=== PATIENT | female | born 1950 | race Caucasian/White ===

== ENCOUNTER 2018-01-15 06:45 | Inpatient (IN) | payer MEDICARE, BC ==
[2018-01-15] MEDS ORDERED: FENTANYL CITRATE INJ/PF 100 MCG/2 ML AMPUL IV ONE (07:49)
--- NOTE | 2018-01-15 07:50 | ER Document Report ---
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 This was an unwitnessed fall. Patient does not actively have a primary care provider. Not take any anticoagulants or blood thinners. Patient states when she was trying to sit down on the toilet, she started to become dizzy and fell forward. Patient is currently staying with her her son, she resides in [place]. Denies fevers, chills, chest pain, palpitations, shortness of breath, dyspnea, nausea, vomiting, diarrhea, abdominal pain, hematuria,blurred vision, double vision, loss of vision, speech changes, LH, headaches, wheezing, ST, URI, neck pain, weakness, bowel or bladder dysfunction, saddle anesthesia, numbness or tingling in bilateral upper or lower extremities equally, muscle paralysis, weakness in bilateral upper or lower extremities equally or rash. - Related Data Allergies/Adverse Reactions: metformin [From Glucophage] Allergy (Verified 01/15/18 07:12) morphine Allergy (Verified 01/15/18 07:12) Past Medical History - Social History Smoking Status: Current Every Day Smoker Chew tobacco use (# tins/day): No Frequency of alcohol use: None Drug Abuse: None Family History: Reviewed & Not Pertinent Patient has suicidal ideation: No Patient has homicidal ideation: No - Past Medical History Cardiac Medical History: Reports: Hx Hypercholesterolemia Pulmonary Medical History: Reports: Hx COPD Endocrine Medical History: Reports: Hx Diabetes Mellitus Type 2 Renal/ Medical History: Denies: Hx Peritoneal Dialysis Review of Systems - Review of Systems Constitutional: See HPI EENT: No symptoms reported Cardiovascular: No symptoms reported Respiratory: No symptoms reported Gastrointestinal: No symptoms reported Genitourinary: No symptoms reported Female Genitourinary: No symptoms reported Musculoskeletal: See HPI Skin: No symptoms reported Hematologic/Lymphatic: No symptoms reported Neurological/Psychological: No symptoms reported Physical Exam - Vital signs Vitals: Pulse Ox 95 01/15/18 06:52 - Notes Notes: PHYSICAL EXAMINATION: GENERAL: Well-appearing, well-nourished and in no acute distress. HEAD: Atraumatic, normocephalic. EYES: Pupils equal round and reactive to light, extraocular movements intact, conjunctiva are normal. ENT: Nares patent, oropharynx clear without exudates. Moist mucous membranes. NECK: Normal range of motion, supple without lymphadenopathy. full APROM of cervical spine, noted cervical spinal tenderness on palpation from C4-C5. negative spurlings test. Vp [employer] + 2 bilaterally and equally. Dtr +2 bilaterally and equally in BUE. Perrla, full eomi. Face symmetrical. No rashes observed. Point tenderness to right paraspinal muscles near C6. No lymphadenopathy. Full APROM with shoulders. TM intact bilaterally. No meningismus. No noted lymphadenopathy. LUNGS: Breath sounds clear to auscultation bilaterally and equal. No wheezes rales or rhonchi. HEART: Regular rate and rhythm without murmurs ABDOMEN: Soft, nontender, nondistended abdomen. No guarding, no rebound. No masses appreciated. Female : deferred Musculoskeletal: Normal range of motion, no pitting or edema. No cyanosis. left shoulder pain with abduction and flexion. no pain with supination, pronation, extension. negative , [employer] + 2 BUE equally. APROM in shoulder. DTR + 2 in BUE equally. Noted crepitus with APROM in elbow. positive drop arm, neer sign, marquez test bilaterally. No vascular compromise. Neck with full APROM, no cervical spinal tenderness. No tenderness over clavicles or step off noted bilaterally. Strength 5 out of 5 in bilateral upper extremities equally. NEUROLOGICAL: Cranial nerves grossly intact. Normal speech, normal gait. Normal sensory, motor exams. PERRLA, EOMI. Full motor and sensory function throughout. Vp [employer] + 2 equal bilaterally in BUE. Tongue midline. No pronator drift. No ataxia. Neck with APROM. Raises eyebrows. Strength is 5 out of 5 in bilateral upper and lower extremities equally.Speaks in full sentences. No weakness on one side. Romberg gait steady able to walk straight line. Able to recall 5 objects. PSYCH: Normal mood, normal affect. SKIN: Warm, Dry, normal turgor, no rashes or lesions noted. Course - Re-evaluation Re-evalutation: 01/15/18 08:58 67-year-old female who is afebrile, vitals stable and in mild distress due to pain presents for evaluation for dizziness pain to her right shoulder. Her son requested to have femur x-ray on her left hip because she had a brittani placement taken out approximately a year ago from a previous injury, he was concerned about the ride for the patient is not having any pain in this area. CBC negative for leukocytosis or anemia. CMP does show potassium of 2.7 which will replace with K riders, BNP 1130 which is new onset CHF for this patient. First set of troponin is negative, EKG negative for STEM. Hr 75. First set of cardiac enzymes negative. CT head, cxr, and cervical spine did not show any acute findings per radiology. xray shoulder showed an acute displaced fracture of the left humeral head of the surgical neck with suggestion of combination into the humeral head. Contacted Dr. Cristofer Jane, family centered specialist on-call for the ED at home, stated he would like her placed in a sling and will see her in the office on Tuesday. Consulted with Dr.Avijeet Ellsworth, hospitalist,at 0945, for new onset CHF , hypokalemia 2.7, left surgical head displaced fracture which is also comminuted will admit to telemetry for further management of care and medical service. - Vital Signs Vital signs: Temp Pulse Resp BP Pulse Ox 98.3 F 75 16 171/92 H 88 L 01/15/18 06:54 01/15/18 10:53 01/15/18 06:54 01/15/18 11:01 01/15/18 11:01 - Laboratory Result Diagrams: 01/15/18 08:21 01/15/18 08:21 Laboratory results interpreted by me: 01/15/18 01/15/18 01/15/18 08:21 08:21 08:21 RDW 17.1 H Seg Neutrophils % 81.8 H Lymphocytes % 9.6 L Potassium 2.7 L* Carbon Dioxide 35 H Glucose 330 H AST 40 H NT-Pro-B Natriuret Pep 1160 H Albumin 3.1 L Urine Protein Urine Glucose (UA) Urine Ketones Urine Blood Urine Urobilinogen 01/15/18 10:45 RDW Seg Neutrophils % Lymphocytes % Potassium Carbon Dioxide Glucose AST NT-Pro-B Natriuret Pep Albumin Urine Protein >=500 H Urine Glucose (UA) >=500 H Urine Ketones 20 H Urine Blood SMALL H Urine Urobilinogen 4.0 H Discharge - Discharge Clinical Impression: New onset of congestive heart failure, Hypokalemia Fracture of humeral head, left, closed Qualifiers: Encounter type: initial encounter Qualified Code(s): S42.292A - Other displaced fracture of upper end of left humerus, initial encounter for closed fracture Condition: Stable Disposition: ADMITTED INPATIENT Admitting Provider: Hospitalist - Dr. Bhat Dut Unit Admitted: Telemetry
[2018-01-15 08:38] LABS: ABSOLUTE BASOPHILS # (AUTO) 0.1 10^3/uL (0.0-0.2); ABSOLUTE EOSINOPHILS # (AUTO) 0.1 10^3/uL (0.0-0.6); ABSOLUTE LYMPHOCYTES (AUTO) 0.7 10^3/uL (0.5-4.7); ABSOLUTE MONOCYTES (AUTO) 0.4 10^3/uL (0.1-1.4); BASOPHILS % (AUTO) 0.8 % (0-2); EOSINOPHILS % (AUTO) 1.9 % (0-6); HEMATOCRIT 42.5 % (36.0-47.0); HEMOGLOBIN 14.6 g/dL (12.0-15.5); LYMPHOCYTES % (AUTO) 9.6 % (13-45); MEAN CORPUSCULAR HEMOGLOBIN 28.6 pg (27.0-33.4); MEAN CORPUSCULAR HGB CONC 34.4 g/dL (32.0-36.0); MEAN CORPUSCULAR VOLUME 83 fl (80-97); MONOCYTES % (AUTO) 5.9 % (3-13); PLATELET COUNT 193 10^3/uL (150-450); RED BLOOD COUNT 5.12 10^6/uL (3.72-5.28); RED CELL DISTRIBUTION WIDTH 17.1 % (11.5-14.0); SEGMENTED NEUTROPHILS % (AUTO) 81.8 % (42-78); TOTAL CELLS COUNTED % (AUTO) 100 %; WHITE BLOOD COUNT 7.3 10^3/uL (4.0-10.5)
[2018-01-15 08:50] LABS: INTERNATIONAL RATION (INR) 0.95; PARTIAL THROMBOPLASTIN TIME 28.5 SEC (23.5-35.8); PROTHROMBIN TIME 13.1 SEC (11.4-15.4)
[2018-01-15 09:02] LABS: ALANINE AMINOTRANSFERASE 26 U/L (9-52); ALBUMIN 3.1 g/dL (3.5-5.0); ALKALINE PHOSPHATASE 112 U/L (38-126); ANION GAP 5 (5-19); ASPARTATE AMINO TRANSFERASE 40 U/L (14-36); BILIRUBIN,DIRECT 0.4 mg/dL (0.0-0.4); BLOOD UREA NITROGEN 12 mg/dL (7-20); CALCIUM 8.5 mg/dL (8.4-10.2); CARBON DIOXIDE 35 mmol/L (22-30); CHLORIDE 101 mmol/L (98-107); CREATINE KINASE 32 U/L (30-135); GLUCOSE 330 mg/dL (75-110); SODIUM 140.7 mmol/L (137-145); TOTAL PROTEIN 6.4 g/dL (6.3-8.2)
[2018-01-15 09:08] LABS: CREATINE KINASE MB 0.48 ng/mL (<4.55)
--- NOTE | 2018-01-15 09:08 | RADIOLOGY REPORT (SQ) ---
EXAM DESCRIPTION: CT HEAD WITHOUT COMPLETED DATE/TIME: 01/15/2018 8:46 am REASON FOR STUDY: unwitnessed fall s/p dizziness into bathtub COMPARISON: None. TECHNIQUE: Axial images acquired through the brain without intravenous contrast. Images reviewed wi th bone, brain and subdural windows. Additional sagittal and coronal reconstructions were generated. Images stored on PACS. All CT scanners at this facility use dose modulation, iterative reconstruction, and/or weight based d osing when appropriate to reduce radiation dose to as low as reasonably achievable (ALARA). [facility]: Dose Right [facility]: CareDose [facility]: Dose Right [facility]: Teradose 4D [facility]: Smart Fio RADIATION DOSE: CT Rad equipment meets quality standard of care and radiation dose reduction techniq ues were employed. CTDIvol: 53.2 mGy. DLP: 937 mGy-cm. mGy. LIMITATIONS: None. FINDINGS: VENTRICLES: Prominent. CEREBRUM: No masses. No hemorrhage. No midline shift. Areas of low density in the white matter mos t likely due to chronic micro-vascular ischemic change. No evidence for acute infarction. CEREBELLUM: No masses. No hemorrhage. No alteration of density. No evidence for acute infarction. EXTRAAXIAL SPACES: Mild age-related involutional change. No fluid collections. No masses. ORBITS AND GLOBE: No intra- or extraconal masses. Normal contour of globe without masses. CALVARIUM: No fracture. PARANASAL SINUSES: No fluid or mucosal thickening. SOFT TISSUES: No mass or hematoma. OTHER: No other significant finding. IMPRESSION: MILD CHRONIC CHANGES OF ATROPHY AND MICROVASCULAR ISCHEMIA. NO ACUTE PROCESS. EVIDENCE OF ACUTE STROKE: NO. TECHNICAL DOCUMENTATION: JOB ID: [id number] Quality ID # [id number]: Final reports with documentation of one or more dose reduction techniques (e.g., Au tomated exposure control, adjustment of the mA and/or kV according to patient size, use of iterative reconstruction technique) 2010 [employer]- All Rights Reserved Reading location - IP/workstation name: [email or web address]
[2018-01-15 09:12] LABS: TROPONIN I 0.012 ng/mL
--- NOTE | 2018-01-15 09:12 | RADIOLOGY REPORT (SQ) ---
EXAM DESCRIPTION: CT CERVICAL SPINE WITHOUT COMPLETED DATE/TIME: 01/15/2018 8:46 am REASON FOR STUDY: unwitnessed fall s/p dizziness into bathtub COMPARISON: None. TECHNIQUE: Axial images acquired through the cervical spine without intravenous contrast. Images re viewed with lung, soft tissue and bone windows. Reconstructed coronal and sagittal MPR images review ed. Images stored on PACS. All CT scanners at this facility use dose modulation, iterative reconstruction, and/or weight based d osing when appropriate to reduce radiation dose to as low as reasonably achievable (ALARA). [facility]: Dose Right [facility]: CareDose [facility]: Dose Right [facility]: Teradose 4D [facility]: Smart [employer] RADIATION DOSE: CT Rad equipment meets quality standard of care and radiation dose reduction techniq ues were employed. CTDIvol: 19.8 mGy. DLP: 374 mGy-cm. mGy. LIMITATIONS: None. FINDINGS: ALIGNMENT: Anatomic. MINERALIZATION: Normal. VERTEBRAL BODIES: No fractures or dislocation. DISCS: Multilevel disc space narrowing with osteophytes. FACETS, LATERAL MASSES, POSTERIOR ELEMENTS: Facet arthropathy. No fractures. No dislocation. No ac aleksey findings. HARDWARE: None in the spine. VISUALIZED RIBS: No fractures. LUNG APICES AND SOFT TISSUES: There is a 1.8 cm hypoattenuating nodule in the right lobe of the thyro id with some associated calcifications. The lung apices are clear. OTHER: No other significant finding. IMPRESSION: 1. No evidence of acute cervical spine fracture 2. 1.8 cm nodule in the right lobe of the thyroid. Recommend thyroid ultrasound for further evaluat ion. 3. Multilevel chronic degenerative changes of the cervical spine. TECHNICAL DOCUMENTATION: JOB ID: [id number] Quality ID # [id number]: Final reports with documentation of one or more dose reduction techniques (e.g., Au tomated exposure control, adjustment of the mA and/or kV according to patient size, use of iterative reconstruction technique) 2010 [employer]- All Rights Reserved Reading location - IP/workstation name: [email or web address]
[2018-01-15 09:14] LABS: C-REACTIVE PROTEIN < 5.0 mg/L (<10.0); POTASSIUM 2.7 mmol/L (3.6-5.0)
--- NOTE | 2018-01-15 09:15 | RADIOLOGY REPORT (SQ) ---
EXAM DESCRIPTION: CHEST SINGLE VIEW COMPLETED DATE/TIME: 01/15/2018 9:07 am REASON FOR STUDY: unwitnessed fall s/p dizziness into bathtub COMPARISON: None. EXAM PARAMETERS: NUMBER OF VIEWS: One view. TECHNIQUE: Single frontal radiographic view of the chest acquired. RADIATION DOSE: NA LIMITATIONS: None. FINDINGS: LUNGS AND PLEURA: No opacities, masses or pneumothorax. No pleural effusion. MEDIASTINUM AND HILAR STRUCTURES: No masses. Contour normal. HEART AND VASCULAR STRUCTURES: Heart normal in size. Normal vasculature. BONES: There is an acute, displaced fracture of the surgical neck of left humerus. HARDWARE: None in the chest. OTHER: No other significant finding. IMPRESSION: Acute, displaced fracture of the left proximal humerus. No evidence of acute cardiopulm onary process. TECHNICAL DOCUMENTATION: JOB ID: [id number] [employer]- All Rights Reserved Reading location - IP/workstation name: [email or web address]
--- NOTE | 2018-01-15 09:17 | RADIOLOGY REPORT (SQ) ---
EXAM DESCRIPTION: FEMUR RIGHT COMPLETED DATE/TIME: 01/15/2018 9:07 am REASON FOR STUDY: unwitnessed fall s/p dizziness into bathtub COMPARISON: None. NUMBER OF VIEWS: Two views. TECHNIQUE: Two radiographic images acquired of the right femur to include hip and knee in at least o ne projection. LIMITATIONS: None. FINDINGS: MINERALIZATION: Normal. BONES: No acute fracture. Old postsurgical changes noted about the right femur. Moderate degenerati ve changes present about the right hip. Old fracture of the right superior and inferior pubic rami. SOFT TISSUES: No obvious swelling or foreign body. OTHER: No other significant finding. IMPRESSION: No evidence of acute injury. Old postsurgical changes as well as old posttraumatic and degenerative changes. TECHNICAL DOCUMENTATION: JOB ID: [id number] [employer]- All Rights Reserved Reading location - IP/workstation name: [email or web address]
--- NOTE | 2018-01-15 09:20 | RADIOLOGY REPORT (SQ) ---
EXAM DESCRIPTION: SHOULDER LEFT 2 OR MORE VIEWS COMPLETED DATE/TIME: 01/15/2018 9:07 am REASON FOR STUDY: unwitnessed fall s/p dizziness into bathtub COMPARISON: None. NUMBER OF VIEWS: Two views. TECHNIQUE: Internal rotation and Y view images acquired of the left shoulder. LIMITATIONS: None. FINDINGS: MINERALIZATION: Normal. BONES: There is an acute, mildly displaced fracture of the left humeral head at the surgical neck. T here may be some comminution into the left humeral head. There appears to be anterior displacement o f the distal fracture fragment. The visualized portion of the scapula and glenoid appear to be intac t. No other acute fractures are identified. JOINTS: No dislocation. VISUALIZED LUNGS AND RIBS: No pneumothorax. No rib fracture. SOFT TISSUES: No radiopaque foreign body. OTHER: No other significant finding. IMPRESSION: Acute, displaced fracture of the left humeral head at the surgical neck. Suggestion of some comminution into the humeral head. TECHNICAL DOCUMENTATION: JOB ID: [id number] [employer]- All Rights Reserved Reading location - IP/workstation name: [email or web address]
[2018-01-15] MEDS: POTASSI CL 20 MEQ/50 ML RIDER 20 MEQ/50 ML RTUPB IV SCH ×2 (09:57→12:33)
[2018-01-15] MEDS ORDERED: ONDANSETRON HCL INJ/PF 4 MG/2 ML SDV IV PRN (10:50)
[2018-01-15 11:08] LABS: APPEARANCE,URINE CLEAR; BILIRUBIN,URINE NEGATIVE (NEGATIVE); COLOR,URINE YELLOW; GLUCOSE, URINE >=500 mg/dL (NEGATIVE); KETONES,URINE 20 mg/dL (NEGATIVE); LEUKOCYTE ESTERASE,URINE NEGATIVE (NEGATIVE); NITRITE,URINE NEGATIVE (NEGATIVE); PROTEIN,URINE >=500 mg/dL (NEGATIVE); URINE SPECIFIC GRAVITY 1.021
[2018-01-15] MEDS ORDERED: DEXTROSE 40% GEL 15 GM TUBE PO PRN ×2 (12:05)
[2018-01-15] MEDS ORDERED: DEXTROSE 50%-WATER 25 GM/50 ML DISP.SYRIN IV PRN ×2 (12:05)
[2018-01-15] MEDS ORDERED: GLUCAGON,HUMAN RECOMB 1 MG INJ IM PRN (12:05)
--- NOTE | 2018-01-15 12:06 | XCELERA REPORT ---
[address] [address] Lower Extremity Venous Evaluation Name: GWEN MCNEAL Age: 67 yrs Gender: Female : 1950 Patient Status: Inpatient Patient Location: [place] [id number]^A Study Date: 01/15/2018 10:50 AM Procedure: Color flow and duplex imaging of the veins of the right lower extremity as well as the left Common Femoral vein. Reason For Study: right lower extremity Ordering Physician: JINA HECTOR Performed By: Venecia Tobin Right Sided Venous Evaluation Normal vessel filling wall to wall, compression and augmentation as well as Colour flow down to the infrageniculate veins. Left Sided Venous Evaluation The left common femoral vein is fully compressible. Spontaneous and phasic flow is present in the left common femoral vein. Interpretation Summary No duplex evidence of DVT or obstruction in the right lower extremity nor in the left Common Femoral vein. : JINA HECTOR > Davie Massey
--- NOTE | 2018-01-15 12:13 | RADIOLOGY REPORT (SQ) ---
EXAM DESCRIPTION: U/S THYROID/SFT TISS HD NECK COMPLETED DATE/TIME: 01/15/2018 11:53 am REASON FOR STUDY: 1.8cm right nodule COMPARISON: None. TECHNIQUE: Dynamic and static hamilton-scale images acquired of the thyroid gland. Selected additional c olor/power Doppler images recorded. All images stored to PACS. LIMITATIONS: None. FINDINGS: RIGHT LOBE: Normal size. Homogeneous echotexture. There is a 1.1 x 1.0 x 1.1 solid nodul e that is mildly hypoechoic and well circumscribed in the right lobe. Minimal internal flow is prese nt. LEFT LOBE: Normal size. Homogeneous echotexture. No cystic or solid masses. ISTHMUS: Normal size. Homogeneous echotexture. No cystic or solid masses. OTHER: No other significant finding. IMPRESSION: TI-RADS category 4: Moderately suspicious nodule in the right lobe of the thyroid. Per the 2017 ACR guidelines, a follow up exam is recommended at 1, 2, 3, and 5 years TECHNICAL DOCUMENTATION: JOB ID: [id number] [employer]- All Rights Reserved Reading location - IP/workstation name: [email or web address]
--- NOTE | 2018-01-15 12:37 | PDOC H&P ---
History of Present Illness Admission Date/PCP: 01/15/2018 Patient complains of: fall History of Present Illness: GWEN MCNEAL is a 67-year-old female with a past medical history of diabetes, hypothyroidism and depression who presented to the ED complaining of fall at home today. Patient is a very poor historian and unfortunately there is no family member at bedside at this time. I spoke with patient and most of the history is from her and also ED chart. Patient states that this morning she was going to the bathroom and when she was standing and ready to does sit on the commode she fell forward and hit her shoulder. Family member found her on the floor immediately and called EMS and brought her over. Patient denies feeling dizziness, lightheadedness, headaches, shortness of breath, chest pain, palpitations, blurry vision, diaphoresis, fevers or chills prior to this incident. Patient denies any change in speech, numbness/tingling or weakness prior to the fall. Patient states that she has a history of lymphedema of her right lower extremity from cancer in the past. States she is not being treated currently. In the ED she received IV fluids and potassium. She also had CT of her cervical spine, head and x-ray of her femur and shoulders. X-ray of her chest does show a left humeral fracture. Orthopedics was consulted and they recommend placing on a sling at this time and follow-up. I asked patient about her home medications but she is not sure of what she takes. Patient does admit to smoking 15 cigarettes a day. States she started at the age of 11. I counseled her about smoking cessation-states she is not ready. Past Medical History Cardiac Medical History: Reports: Hyperlipidema Pulmonary Medical History: Reports: Chronic Obstructive Pulmonary Disease (COPD) Endocrine Medical History: Reports: Diabetes Mellitus Type 2 Social History Information Source: Patient - No family members available at bedside Lives with: Family Smoking Status: Current Every Day Smoker Drugs: None Family History Parental Family History Reviewed: Yes Children Family History Reviewed: Unknown Sibling(s) Family History Reviewed.: Unknown Medication/Allergy Home Medications: Alendronate Sodium [Fosamax 70 mg Tablet] 70 mg PO SAHU 01/15/18 Cholecalciferol (Vitamin D3) [Vitamin D3 5000 unit Capsule] 5,000 unit PO DAILY 01/15/18 Diphenhydramine HCl [Benadryl 25 mg Capsule] 25 mg PO DAILYP PRN 01/15/18 Gabapentin [Neurontin 300 mg Capsule] 300 mg PO Q8 01/15/18 Insulin Aspart [Novolog Insulin (Aspart) 100 unit/mL] 10 units SQ TID 01/15/18 Levothyroxine Sodium [Synthroid] 125 mcg PO Q6AM 01/15/18 NPH, Human Insulin Isophane [Novolin N (NPH) Insulin 100 unit/mL] 40 units SQ BID 01/15/18 Paroxetine HCl [Paxil 20 mg Tablet] 20 mg PO QAM 01/15/18 Simvastatin [Zocor 20 mg Tablet] 20 mg PO QHS 01/15/18 Allergies/Adverse Reactions: metformin [From Glucophage] Allergy (Verified 01/15/18 07:12) morphine Allergy (Verified 01/15/18 07:12) Physical Exam Vital Signs: Temp Pulse Resp BP Pulse Ox 98.3 F 75 16 179/90 H 89 L 01/15/18 06:54 01/15/18 10:53 01/15/18 06:54 01/15/18 10:53 01/15/18 10:41 Intake & Output 01/14/18 01/15/18 01/16/18 06:59 06:59 06:59 Weight 200 lb General appearance: PRESENT: no acute distress, disheveled, obese, other - appears older than stated age Head exam: PRESENT: atraumatic, normocephalic Eye exam: PRESENT: EOMI. ABSENT: conjunctival injection, scleral icterus Ear exam: PRESENT: normal external ear exam Mouth exam: PRESENT: dry mucosa, tongue midline Neck exam: PRESENT: other - Unable to appreciate a nodule. ABSENT: JVD, tenderness, thyromegaly, tracheal deviation Respiratory exam: PRESENT: decreased breath sounds - Bilaterally and mostly at the bases with expiratory wheezing and occasional rhonchi, symmetrical Cardiovascular exam: PRESENT: RRR, +S1, +S2 Pulses: PRESENT: +2 pedal pulses bilateral Vascular exam: PRESENT: normal capillary refill GI/Abdominal exam: PRESENT: normal bowel sounds, soft. ABSENT: tenderness Rectal exam: PRESENT: deferred Extremities exam: PRESENT: tenderness - Left side-left shoulder laterally tender to palpation with decreased range of motio, distal pulses 2+, good range of motion at the elbow, sensation intact, other - Right lower extremity 2-3+ edema, nonpitting, up to her thigh. Left lower extremity no edema noted Musculoskeletal exam: ABSENT: tenderness - No-calf tenderness Skin exam: PRESENT: dry, warm Results Laboratory Results: 01/15/18 08:21 01/15/18 08:21 01/15/18 01/15/18 08:21 08:21 WBC 7.3 RBC 5.12 Hgb 14.6 Hct 42.5 MCV 83 MCH 28.6 MCHC 34.4 RDW 17.1 H Plt Count 193 Seg Neutrophils % 81.8 H Lymphocytes % 9.6 L Monocytes % 5.9 Eosinophils % 1.9 Basophils % 0.8 Absolute Neutrophils 6.0 Absolute Lymphocytes 0.7 Absolute Monocytes 0.4 Absolute Eosinophils 0.1 Absolute Basophils 0.1 Sodium 140.7 Potassium 2.7 L* Chloride 101 Carbon Dioxide 35 H Anion Gap 5 BUN 12 Creatinine 0.70 Est GFR ( Amer) > 60 Est GFR (Non-Af Amer) > 60 Glucose 330 H Calcium 8.5 Total Bilirubin 1.0 AST 40 H ALT 26 Alkaline Phosphatase 112 C-Reactive Protein < 5.0 Total Protein 6.4 Albumin 3.1 L 01/15/18 01/15/18 08:21 08:21 Creatine Kinase 32 CK-MB (CK-2) 0.48 Troponin I 0.012 NT-Pro-B Natriuret Pep 1160 H Impressions: Cervical Spine CT 01/15/18 07:46 IMPRESSION: 1. No evidence of acute cervical spine fracture 2. 1.8 cm nodule in the right lobe of the thyroid. Recommend thyroid ultrasound for further evaluation. 3. Multilevel chronic degenerative changes of the cervical spine. Chest X-Ray 01/15/18 07:46 IMPRESSION: Acute, displaced fracture of the left proximal humerus. No evidence of acute cardiopulmonary process. Femur X-Ray 01/15/18 07:46 IMPRESSION: No evidence of acute injury. Old postsurgical changes as well as old posttraumatic and degenerative changes. Head CT 01/15/18 07:46 IMPRESSION: MILD CHRONIC CHANGES OF ATROPHY AND MICROVASCULAR ISCHEMIA. NO ACUTE PROCESS. EVIDENCE OF ACUTE STROKE: NO. Shoulder X-Ray 01/15/18 07:46 IMPRESSION: Acute, displaced fracture of the left humeral head at the surgical neck. Suggestion of some comminution into the humeral head. Assessment & Plan - Diagnosis (1) Syncope Qualifiers: Syncope type: unspecified Qualified Code(s): R55 - Syncope and collapse Is this a current diagnosis for this admission?: Yes Plan: Patient is a poor historian and is hard to tell what caused her syncope. Given her age this could be multiple things-stroke versus vasovagal versus dehydration versus infection versus PE versus mechanical. CT of the head was negative. She is not showing any signs of stroke-denies any weakness or change in speech at this time. I will order carotid ultrasound and get an echo. I will get PT to evaluate her at this time. This is most likely vasovagal due to dehydration and hence I will start her on some gentle hydration since I do not know her EF. Neuro checks every 4 hours. Fall precautions. Heparin for DVT prophylaxis and Pepcid for GI prophylaxis (2) Elevated troponin Is this a current diagnosis for this admission?: Yes Plan: First troponin was 0.012, will trend second and third troponin. Less likely she is having an AL. More likely this is just a demand mismatch from her fall today. We will get an EKG in the a.m.-current EKG does not show any acute changes. (3) Elevated brain natriuretic peptide (BNP) level Is this a current diagnosis for this admission?: Yes Plan: Her BNP on arrival was elevated-there is concern of whether she has any new onset CHF. I think at this time we will get an echo in the morning to evaluate her heart function. Hold off on cardiology consult at this time. We will also check her TSH. (4) COPD (chronic obstructive pulmonary disease) Qualifiers: Chronic bronchitis type: unspecified Is this a current diagnosis for this admission?: Yes Plan: Most likely patient has COPD secondary to history of tobacco abuse. Patient has been smoking since the age of 11. Patient continues to smoke 15 cigarettes a day. Counseled on smoking cessation. I will start her on nebulizer treatments as needed for shortness of breath/wheezing. (5) Elevated AST (SGOT) Is this a current diagnosis for this admission?: Yes Plan: Unclear etiology-acute versus chronic. She is unable to give me a good history- she denies history of alcohol. I will trended for now and repeat CMP in the morning and see if it trends down or not. (6) Fracture of humeral head, left, closed Qualifiers: Encounter type: initial encounter Qualified Code(s): S45.370A - Other displaced fracture of upper end of left humerus, initial encounter for closed fracture Is this a current diagnosis for this admission?: Yes Plan: Left humeral head, closed fracture status post fall. Orthopedics was consulted from the ER and was told to place her on a sling at this time. No surgical indication to advised by ED doc to me at this time. (7) Hypokalemia Is this a current diagnosis for this admission?: Yes Plan: Unclear as to what caused her hypokalemia-I do not have her home medications if she is unable to give it to me. I have asked nurses to contact her home and speak with family regarding her home medications. I am still waiting for updated list of home medications and I will reevaluate her. She is receiving potassium in the ED right now. (8) Diabetes mellitus type 2 in obese Is this a current diagnosis for this admission?: Yes Plan: I do not have her home medications with me. She tells me she is on insulin but she does not know any of her doses. I will put her on a sliding scale at this time. I will await for the nurse to update her list of home medications and then reconcile them when available. I will also check an A1c on her. (9) Edema, lower extremity Is this a current diagnosis for this admission?: Yes Plan: She tells me that she has chronic lymphedema of her right lower extremity for many years now. She is not sure if her leg is more or less swollen than usual. She states that she is legally blind and cannot see that well. Her lymphedema could be a cause of her fall since I am not sure if she is able to ambulate appropriately given the amount of edema at the lower extremity. There is some erythema but this may be venous dermatitis since they are on both legs. Nonetheless I will get an ultrasound of the lower extremity to rule out DVT. - Time Time Spent: 50 to 70 Minutes Medications reviewed and adjusted accordingly: Yes
[2018-01-15] MEDS: ACETAMINOPHEN 325 MG TABLET PO PRN ×2 (12:56→17:44)
[2018-01-15 13:06] LABS: FREE T3 2.86 pg/mL (2.77-5.27); FREE T4 (FREE THYROXINE) 1.85 ng/dL (0.78-2.19)
[2018-01-15 13:20] LABS: THYROID STIMULATING HORMONE 6.2 uIU/mL (0.47-4.68)
--- NOTE | 2018-01-15 14:28 | RADIOLOGY REPORT (SQ) ---
EXAM DESCRIPTION: CTA CHEST COMPLETED DATE/TIME: 01/15/2018 1:42 pm REASON FOR STUDY: syncope- PE suspected COMPARISON: None. TECHNIQUE: CT scan of the chest performed using helical scanning technique with dynamic intravenous contrast injection. Images reviewed with lung, soft tissue and bone windows. Reconstructed coronal and sagittal MPR images reviewed. Additional 3 dimensional post-processing performed to develop Maximal Intensity Projection images (TX P). All images stored on PACS. All CT scanners at this facility use dose modulation, iterative reconstruction, and/or weight based d osing when appropriate to reduce radiation dose to as low as reasonably achievable (ALARA). [facility]: Dose Right [facility]: CareDose [facility]: Dose Right [facility]: Teradose 4D [facility]: [employer] CONTRAST TYPE AND DOSE: contrast/concentration: Isovue 370.00 mg/ml; Total Contrast Delivered: 77.0 ml; Total Saline Delivered: 110.0 ml Contrast bolus optimized for the pulmonary arteries. Not diagnostic for the aorta. RENAL FUNCTION: BUN 12; creatinine 0.70 RADIATION DOSE: CT Rad equipment meets quality standard of care and radiation dose reduction techniq ues were employed. CTDIvol: 19.8 - 22.3 mGy. DLP: 779 mGy-cm. . LIMITATIONS: None. FINDINGS: LUNGS AND PLEURA: Left lung base scarring. No masses, infiltrates, or pneumothorax. No p leural effusions or pleural calcifications. AORTA AND GREAT VESSELS: No aneurysm. Contrast bolus not optimized for the aorta. HEART: No pericardial effusion. No significant coronary artery calcifications. PULMONARY ARTERIES: No emboli visualized in the main pulmonary arteries or the segmental branches. HILAR AND MEDIASTINAL STRUCTURES: No identified masses or abnormal nodes. HARDWARE: None in the chest. UPPER ABDOMEN: No significant findings. Limited exam. THYROID AND OTHER SOFT TISSUES: No masses. No adenopathy. BONES: No acute or significant finding. 3D MIPS: Confirm above findings. OTHER: No other significant finding. IMPRESSION: NORMAL CTA OF THE CHEST. NO PULMONARY EMBOLI. COMMENT: Quality ID # [id number]: Final reports with documentation of one or more dose reduction techniques (e.g., Automated exposure control, adjustment of the mA and/or kV according to patient size, use of iterative reconstruction technique) TECHNICAL DOCUMENTATION: JOB ID: [id number] [employer]- All Rights Reserved Reading location - [facility]station [email or web address]
--- NOTE | 2018-01-15 15:27 | EKG REPORT ---
SEVERITY:- ABNORMAL ECG - SINUS RHYTHM NONSPECIFIC T ABNORMALITIES, LATERAL LEADS : Confirmed by: Erik Anaya MD 15-Jan-2018 15:26:55
[2018-01-15] MEDS: IPRATROPIUM/ALBUTEROL 0.5-2.5 MG/3 ML AMPUL NEB SCH (16:35)
[2018-01-15] MEDS: HEPARIN SOD (PORCINE) 5,000 UNIT/ML 1 ML SYRINGE SUBCUT SCH ×2 (16:41→21:39)
[2018-01-15] MEDS: NORMAL SALINE 1000 ML 1,000 ML IV PRN (17:12)
[2018-01-15] MEDS: INSULIN NPH (ISOPHANE), HUMAN 100 UNIT/ML 3 ML SUBCUT SCH (17:13)
[2018-01-15] MEDS: INSULIN LISPRO 100 UNIT/ML 3 ML VIAL SUBCUT PRN (17:14)
[2018-01-15] MEDS: INSULIN LISPRO 100 UNIT/ML 3 ML VIAL SUBCUT SCH (17:46)
[2018-01-15] MEDS ORDERED: (PENDING PHARMACY ID) (Nph, Human Insulin Isophane [Novolin N (Nph) Insulin 100 Unit/Ml] 4 SQ SCH (18:00)
[2018-01-15] MEDS ORDERED: (PENDING PHARMACY ID) (Insulin Aspart [Novolog Insulin (Aspart) 100 Unit/Ml] 10 UNITS) SQ SCH (18:00)
[2018-01-15] MEDS: KETOROLAC TROMETHAMINE INJ/PF 30 MG/1 ML SDV IV PRN (20:03)
[2018-01-15] MEDS: FAMOTIDINE 20 MG TABLET PO SCH (23:03)
[2018-01-15] MEDS: SIMVASTATIN 10 MG TABLET PO SCH (23:03)
[2018-01-15] MEDS ORDERED: GABAPENTIN 300 MG CAPSULE PO ONE (23:45)
[2018-01-16] MEDS: IPRATROPIUM/ALBUTEROL 0.5-2.5 MG/3 ML AMPUL NEB SCH ×3 (00:37→16:31)
[2018-01-16] MEDS: HEPARIN SOD (PORCINE) 5,000 UNIT/ML 1 ML SYRINGE SUBCUT SCH ×3 (03:42→22:22)
[2018-01-16] MEDS: KETOROLAC TROMETHAMINE INJ/PF 30 MG/1 ML SDV IV PRN (03:58)
[2018-01-16] MEDS ORDERED: (PENDING PHARMACY ID) (Levothyroxine Sodium [Synthroid] 125 MCG) PO SCH (06:00)
[2018-01-16] MEDS: LEVOTHYROXINE SODIUM 0.025 MG TABLET PO SCH (06:01)
[2018-01-16] MEDS: LEVOTHYROXINE SODIUM 0.1 MG TABLET PO SCH (06:02)
[2018-01-16] MEDS: NORMAL SALINE 1000 ML 1,000 ML IV PRN (06:02)
[2018-01-16] MEDS: GABAPENTIN 300 MG CAPSULE PO SCH ×3 (06:02→22:22)
[2018-01-16 06:17] LABS: HEMATOCRIT 38.9 % (36.0-47.0); HEMOGLOBIN 13.7 g/dL (12.0-15.5); MEAN CORPUSCULAR HEMOGLOBIN 28.6 pg (27.0-33.4); MEAN CORPUSCULAR HGB CONC 35.1 g/dL (32.0-36.0); MEAN CORPUSCULAR VOLUME 82 fl (80-97); PLATELET COUNT 177 10^3/uL (150-450); RED BLOOD COUNT 4.78 10^6/uL (3.72-5.28); RED CELL DISTRIBUTION WIDTH 17.1 % (11.5-14.0); WHITE BLOOD COUNT 6.2 10^3/uL (4.0-10.5)
[2018-01-16 06:36] LABS: ANION GAP 7 (5-19); BLOOD UREA NITROGEN 13 mg/dL (7-20); CALCIUM 8.1 mg/dL (8.4-10.2); CARBON DIOXIDE 30 mmol/L (22-30); CHLORIDE 106 mmol/L (98-107); CHOLESTEROL 97.39 mg/dL (0-200); GLUCOSE 57 mg/dL (75-110); SODIUM 142.6 mmol/L (137-145); TRIGLYCERIDES 101 mg/dL (<150)
[2018-01-16 06:48] LABS: DIRECT LDL 49 mg/dL (<100)
[2018-01-16 06:51] LABS: POTASSIUM 2.5 mmol/L (3.6-5.0)
[2018-01-16] MEDS ORDERED: POTASSIUM CHLORIDE 10 MEQ CAPSULE.ER PO ONE (08:30)
[2018-01-16] MEDS: POTASSIUM CHLORIDE 20 MEQ/50 ML RTU IV SCH ×2 (08:52→11:19)
[2018-01-16] MEDS: PAROXETINE HCL 20 MG TABLET PO SCH (08:55)
[2018-01-16] MEDS: CHOLECALCIFEROL (D3) 1,000 UNIT TABLET PO SCH (08:57)
[2018-01-16] MEDS: FAMOTIDINE 20 MG TABLET PO SCH ×2 (08:58→22:22)
[2018-01-16] MEDS: INSULIN NPH (ISOPHANE), HUMAN 100 UNIT/ML 3 ML SUBCUT SCH ×2 (08:58→17:07)
[2018-01-16] MEDS: INSULIN LISPRO 100 UNIT/ML 3 ML VIAL SUBCUT SCH ×3 (09:00→17:10)
--- NOTE | 2018-01-16 09:15 | EKG REPORT ---
SEVERITY:- BORDERLINE ECG - SINUS RHYTHM BORDERLINE T WAVE ABNORMALITIES : Confirmed by: Tara Yung MD 16-Jan-2018 09:14:53
--- NOTE | 2018-01-16 12:48 | RADIOLOGY REPORT (SQ) ---
EXAM DESCRIPTION: CAROTID DOPPLER COMPLETED DATE/TIME: 01/16/2018 11:56 am REASON FOR STUDY: syncope COMPARISON: CT cervical spine 01/15/2018 CT brain 01/15/2018 TECHNIQUE: Grayscale ultrasound, Doppler velocity and spectra, and color Doppler images acquired of the extra-cranial carotid and vertebral arteries. Images stored on PACS. LIMITATIONS: None. FINDINGS: RIGHT CAROTID CCA Velocities: Within normal limits. ICA Velocities Peak systolic 0.39 m/s. End diastolic 0.09 m/s. Proximal ICA/CCA peak systolic ratio 1.2. Spectra normal. Minimal mixed calcific and noncalcific plaque. LEFT CAROTID CCA Velocities: Within normal limits. ICA Velocities Peak systolic 0.69 m/s. End diastolic 0.11 m/s. Proximal ICA/CCA peak systolic ratio 1.3. Spectra normal. Minimal mixed calcific and noncalcific plaque. VERTEBRAL ARTERIES: Antegrade flow. Normal waveforms. SUBCLAVIAN ARTERIES: Not evaluated. OTHER: No other significant finding. IMPRESSION: NO HEMODYNAMICALLY SIGNIFICANT STENOSIS. COMMENT: Quality ID #[id number]: Velocity criteria are extrapolated from the diameter data as defined by t he Society of Radiologists in Ultrasound Consensus Conference. Radiology 2003: 229; 340-346. TECHNICAL DOCUMENTATION: JOB ID: [id number] [employer]- All Rights Reserved Reading location - IP/workstation name: [email or web address]
[2018-01-16 16:45] LABS: ANION GAP 7 (5-19); BLOOD UREA NITROGEN 13 mg/dL (7-20); CALCIUM 8.5 mg/dL (8.4-10.2); CARBON DIOXIDE 31 mmol/L (22-30); CHLORIDE 106 mmol/L (98-107); GLUCOSE 115 mg/dL (75-110); POTASSIUM 3.1 mmol/L (3.6-5.0); SODIUM 144.4 mmol/L (137-145)
[2018-01-16] MEDS: ACETAMINOPHEN 325 MG TABLET PO PRN (17:09)
[2018-01-16] MEDS ORDERED: HYDRALAZINE HCL INJ/PF 20 MG/1 ML SDV IV PRN (17:23)
[2018-01-16] MEDS ORDERED: NORMAL SALINE 1000 ML 1,000 ML IV PRN (17:24)
--- NOTE | 2018-01-16 18:11 | PDOC CONSULTATION ---
Consultation Consult Date: 01/16/18 Consult reason:: Left proximal humerus fracture History of Present Illness Admission Date/PCP: 01/15/18 11:16 History of Present Illness: GWEN MCNEAL is a 67 year old female with a past medical history of diabetes, hypothyroidism and depression who presented to the ED complaining of fall at home today. Patient is a very poor historian and unfortunately there is no family member at bedside at this time when I saw her in her room and the floor. I spoke with patient and most of the history is from her and also ED chart. Patient states that this morning she was going to the bathroom and when she was standing and ready to does sit on the commode she fell forward and hit her shoulder. Family member found her on the floor immediately and called EMS and brought her over. Patient denies feeling dizziness, lightheadedness, headaches , shortness of breath, chest pain, palpitations, blurry vision, diaphoresis, fevers or chills prior to this incident. Patient denies any change in speech, numbness/tingling or weakness prior to the fall. Denies any other extremity injury. Complains of 5 out of 5 pain with attempted range of motion. Past Medical History Cardiac Medical History: Reports: Hyperlipidema Pulmonary Medical History: Reports: Chronic Obstructive Pulmonary Disease (COPD) Endocrine Medical History: Reports: Diabetes Mellitus Type 2 Psychiatric Medical History: Reports: Depression Social History Lives with: Family Smoking Status: Current Every Day Smoker Cigarettes Packs Per Day: 1 Number of Years Smokin Last Time Smoked: last night Frequency of Alcohol Use: None Hx Recreational Drug Use: No Drugs: None Hx Prescription Drug Abuse: No - Advance Directive Resuscitation Status: Full Code Family History Family History: Reviewed & Not Pertinent Parental Family History Reviewed: No Children Family History Reviewed: No Sibling(s) Family History Reviewed.: No Medication/Allergy Home Medications: Alendronate Sodium [Fosamax 70 mg Tablet] 70 mg PO SAHU 01/15/18 Cholecalciferol (Vitamin D3) [Vitamin D3 5000 unit Capsule] 5,000 unit PO DAILY 01/15/18 Diphenhydramine HCl [Benadryl 25 mg Capsule] 25 mg PO DAILYP PRN 01/15/18 Gabapentin [Neurontin 300 mg Capsule] 300 mg PO Q8 01/15/18 Insulin Aspart [Novolog Insulin (Aspart) 100 unit/mL] 10 units SQ TID 01/15/18 Levothyroxine Sodium [Synthroid] 125 mcg PO Q6AM 01/15/18 NPH, Human Insulin Isophane [Novolin N (NPH) Insulin 100 unit/mL] 40 units SQ BID 01/15/18 Paroxetine HCl [Paxil 20 mg Tablet] 20 mg PO QAM 01/15/18 Simvastatin [Zocor 20 mg Tablet] 20 mg PO QHS 01/15/18 Allergies/Adverse Reactions: metformin [From Glucophage] Allergy (Verified 01/15/18 07:12) morphine Allergy (Verified 01/15/18 07:12) Review of Systems ROS unobtainable: Due to mental status Physical Exam Vital Signs: Temp Pulse Resp BP Pulse Ox 37.2 C 81 18 165/73 H 94 01/16/18 11:45 01/16/18 14:00 01/16/18 11:45 01/16/18 11:45 01/16/18 11:45 Intake & Output 01/15/18 01/16/18 01/17/18 06:59 06:59 06:59 Intake Total 1810 Balance 1810 Weight 80.8 kg General appearance: PRESENT: no acute distress, cooperative Head exam: PRESENT: atraumatic, normocephalic Eye exam: PRESENT: EOMI, PERRLA Ear exam: PRESENT: normal external ear exam Mouth exam: PRESENT: neck supple Throat exam: ABSENT: tonsillogmegaly Neck exam: ABSENT: lymphadenopathy, thyromegaly, tracheal deviation Respiratory exam: PRESENT: symmetrical, unlabored. ABSENT: accessory muscle use , tachypnea Cardiovascular exam: PRESENT: RRR Pulses: PRESENT: normal radial pulses Vascular exam: PRESENT: normal capillary refill GI/Abdominal exam: PRESENT: soft. ABSENT: distended, guarding, tenderness Neurological exam: PRESENT: alert, altered, awake, oriented to person, oriented to place Psychiatric exam: PRESENT: appropriate affect, normal mood Skin exam: PRESENT: intact, normal color. ABSENT: erythema, skin tears Adult Front & Back Image: 1 - Ecchymosis and swelling of the left shoulder. Tenderness to palpation of the anterior and lateral aspect of the shoulder. Pain with any attempted range of motion in all planes. Good sensation distally to light touch with extension and flexion of all the digits and wrist. She has intact radial/ulnar/median nerve distribution for motor and sensory nerve. Elbow has full range of motion with no deformity. Results Laboratory Results: 01/16/18 05:56 01/16/18 16:08 01/16/18 01/16/18 01/16/18 05:56 05:56 05:56 WBC 6.2 RBC 4.78 Hgb 13.7 Hct 38.9 MCV 82 MCH 28.6 MCHC 35.1 RDW 17.1 H Plt Count 177 Sodium 142.6 Potassium 2.5 L* Chloride 106 Carbon Dioxide 30 Anion Gap 7 BUN 13 Creatinine 0.60 Est GFR ( Amer) > 60 Est GFR (Non-Af Amer) > 60 Glucose 57 L Calcium 8.1 L Magnesium 1.7 Ammonia 10.3 Triglycerides 101 Cholesterol 97.39 LDL Cholesterol Direct 49 VLDL Cholesterol 20.0 HDL Cholesterol 36 L 01/16/18 16:08 WBC RBC Hgb Hct MCV MCH MCHC RDW Plt Count Sodium 144.4 Potassium 3.1 L Chloride 106 Carbon Dioxide 31 H Anion Gap 7 BUN 13 Creatinine 0.67 Est GFR ( Amer) > 60 Est GFR (Non-Af Amer) > 60 Glucose 115 H Calcium 8.5 Magnesium Ammonia Triglycerides Cholesterol LDL Cholesterol Direct VLDL Cholesterol HDL Cholesterol 01/15/18 01/15/18 01/16/18 12:05 16:00 05:56 Troponin I < 0.012 < 0.012 NT-Pro-B Natriuret Pep 1150 H Impressions: Chest/Abdomen CTA 01/15/18 00:00 IMPRESSION: NORMAL CTA OF THE CHEST. NO PULMONARY EMBOLI. Thyroid Ultrasound 01/15/18 00:00 IMPRESSION: TI-RADS category 4: Moderately suspicious nodule in the right lobe of the thyroid. Per the 2017 ACR guidelines, a follow up exam is recommended at 1, 2, 3, and [address] 01/15/18 07:46 IMPRESSION: 1. No evidence of acute cervical spine fracture 2. 1.8 cm nodule in the right lobe of the thyroid. Recommend thyroid ultrasound for further evaluation. 3. Multilevel chronic degenerative changes of the cervical spine. Chest X-Ray 01/15/18 07:46 IMPRESSION: Acute, displaced fracture of the left proximal humerus. No evidence of acute cardiopulmonary process. Femur X-Ray 01/15/18 07:46 IMPRESSION: No evidence of acute injury. Old postsurgical changes as well as old posttraumatic and degenerative changes. Head CT 01/15/18 07:46 IMPRESSION: MILD CHRONIC CHANGES OF ATROPHY AND MICROVASCULAR ISCHEMIA. NO ACUTE PROCESS. EVIDENCE OF ACUTE STROKE: NO. Shoulder X-Ray 01/15/18 07:46 IMPRESSION: Acute, displaced fracture of the left humeral head at the surgical neck. Suggestion of some comminution into the humeral head. Carotid Doppler Study 01/16/18 00:00 IMPRESSION: NO HEMODYNAMICALLY SIGNIFICANT STENOSIS. Status: Image reviewed by me Assessment & Plan - Diagnosis (1) Fracture of humeral head, left, closed Qualifiers: Encounter type: initial encounter Qualified Code(s): S42.292A - Other displaced fracture of upper end of left humerus, initial encounter for closed fracture Is this a current diagnosis for this admission?: Yes Plan: 67-year-old female with significant comorbidities. Poor historian so most of the information was through the chart and nurse. Patient has a minimally displaced left proximal humerus fracture at the level of the surgical neck. Alignment is acceptable with minimal displacement. Patient has a sling on and recommend she wear this and avoid any type of weightbearing or lifting or carrying. She is allowed to remove the sling 3 times a day to do range of motion exercises of her wrist and her elbow. I recommend pain control which she currently has and anti-inflammatories for swelling. Patient will be treated nonoperatively and will follow-up in the office for serial x-rays. Please call back and I will be happy to answer any of your questions.
[2018-01-16] MEDS: POTASSI CL 20 MEQ/50 ML RIDER 20 MEQ/50 ML RTUPB IV SCH ×2 (18:33→22:21)
--- NOTE | 2018-01-16 19:29 | XCELERA REPORT ---
[address] [address] Transthoracic Echocardiogram Report Name: GWEN MCNEAL Age: 67 yrs Gender: Female : 1950 Patient Status: Inpatient Patient Location: [address] [place] [address] Study Date: 01/16/2018 10:35 AM Height: 64 in Weight: 177 lb BSA: 1.9 m2 Procedure: A two-dimensional transthoracic echocardiogram with color flow Doppler was performed. The study was technically difficult with many images being suboptimal in quality. Reason For Study: CHF History: CHF. Ordering Physician: SHWETHA OCAMPO Performed By: Mary Curtis Interpretation Summary The left ventricle is normal in size. There is normal left ventricular wall thickness. LV EF is 65% Left ventricular systolic function is normal. Doppler measurements suggest impaired left ventricular relaxation, which is associated with grade I/IV or mild diastolic dysfunction The left ventricular wall motion is normal. There is no thrombus. The right ventricle is grossly normal size. The left atrial size is normal. There is no evidence of mitral valve prolapse. There is no mitral valve stenosis. There is no mitral regurgitation noted. There is no aortic valvular vegetation. There is no aortic valve stenosis There is no LVOT obstruction. There is Aortic Sclerosis without Aortic Stenosis. No aortic regurgitation is present. There is no tricuspid stenosis. There is a trace amount of tricuspid regurgitation Right ventricular systolic pressure is normal. RVSP is 24 to 29 mm of Hg , with RA mean of 5 to 10. There is no pericardial effusion. MMode/2D Measurements & Calculations RVDd: 3.8 cm LVIDd: 5.1 cm FS: 37.4 % Ao root diam: 2.7 cm IVSd: 0.98 cm LVIDs: 3.2 cm EDV(Teich): 122.4 ml LVPWd: 1.0 cm ESV(Teich): 40.3 ml Ao root area: 5.7 cm2 EF(Teich): 67.1 % LA dimension: 3.3 cm Doppler Measurements & Calculations MV E max darlene: MV P1/2t max darlene: Ao V2 max: LV V1 max P.6 cm/sec 69.1 cm/sec 178.5 cm/sec 3.5 mmHg MV A max darlene: MV P1/2t: 67.0 msec Ao max PG: LV V1 max: 84.9 cm/sec 12.7 mmHg 93.3 cm/sec MV E/A: 0.80 MVA(P1/2t): 3.3 cm2 MV dec slope: 301.9 cm/sec2 MV dec time: 0.22 sec PA V2 max: TR max darlene: 84.9 cm/sec 218.0 cm/sec PA max PG: TR max P.0 mmHg 2.9 mmHg Left Ventricle The left ventricle is normal in size. There is normal left ventricular wall thickness. LV EF is 65%. Left ventricular systolic function is normal. Doppler measurements suggest impaired left ventricular relaxation, which is associated with grade I/IV or mild diastolic dysfunction. The left ventricular wall motion is normal. There is no thrombus. Right Ventricle The right ventricle is grossly normal size. Atria The right atrium is normal. The left atrial size is normal. Mitral Valve There is no evidence of mitral valve prolapse. There is no vegetation seen on the mitral valve. There is no mitral valve stenosis. There is no mitral regurgitation noted. Aortic Valve There is no aortic valvular vegetation. There is no aortic valve stenosis. There is no LVOT obstruction. There is Aortic Sclerosis without Aortic Stenosis. No aortic regurgitation is present. Tricuspid Valve There is no tricuspid stenosis. There is a trace amount of tricuspid regurgitation. Right ventricular systolic pressure is normal. RVSP is 24 to 29 mm of Hg , with RA mean of 5 to 10. Pulmonic Valve There is no pulmonic valvular stenosis. There is no pulmonic valvular regurgitation. Great Vessels The aortic root is not well visualized but is probably normal size. Effusions There is no pericardial effusion. : SHWETHA OCAMPO > Tara Yung
--- NOTE | 2018-01-16 19:45 | PDOC PROGRESS REPORT ---
Subjective Progress Note for:: 01/16/18 - Seen on rounds this morning Subjective:: Tells me she has no complaints. Had a long conversation with her son who is at bedside about her fall. Sounds like it is more due to mechanical then cardiogenic. We discussed about her care. Orthopedist has not evaluated for fracture yet. And we are waiting for her echo and carotids. Reason For Visit: SYNCOPE,NEW ONSET OF HF Physical Exam Vital Signs: Temp Pulse Resp BP Pulse Ox 98.7 F 78 16 149/63 H 99 01/16/18 16:22 01/16/18 16:31 01/16/18 16:31 01/16/18 16:22 01/16/18 16:31 Intake & Output 01/15/18 01/16/18 01/17/18 06:59 06:59 06:59 Intake Total 1810 1396 Output Total 200 Balance 1810 1196 Weight 178 lb 2.136 oz Results Laboratory Results: 01/16/18 05:56 01/16/18 16:08 01/16/18 01/16/18 01/16/18 05:56 05:56 05:56 WBC 6.2 RBC 4.78 Hgb 13.7 Hct 38.9 MCV 82 MCH 28.6 MCHC 35.1 RDW 17.1 H Plt Count 177 Sodium 142.6 Potassium 2.5 L* Chloride 106 Carbon Dioxide 30 Anion Gap 7 BUN 13 Creatinine 0.60 Est GFR ( Amer) > 60 Est GFR (Non-Af Amer) > 60 Glucose 57 L Calcium 8.1 L Magnesium 1.7 Ammonia 10.3 Triglycerides 101 Cholesterol 97.39 LDL Cholesterol Direct 49 VLDL Cholesterol 20.0 HDL Cholesterol 36 L 01/16/18 16:08 WBC RBC Hgb Hct MCV MCH MCHC RDW Plt Count Sodium 144.4 Potassium 3.1 L Chloride 106 Carbon Dioxide 31 H Anion Gap 7 BUN 13 Creatinine 0.67 Est GFR ( Amer) > 60 Est GFR (Non-Af Amer) > 60 Glucose 115 H Calcium 8.5 Magnesium Ammonia Triglycerides Cholesterol LDL Cholesterol Direct VLDL Cholesterol HDL Cholesterol 01/15/18 01/15/18 01/16/18 12:05 16:00 05:56 Troponin I < 0.012 < 0.012 NT-Pro-B Natriuret Pep 1150 H Impressions: Chest/Abdomen CTA 01/15/18 00:00 IMPRESSION: NORMAL CTA OF THE CHEST. NO PULMONARY EMBOLI. Thyroid Ultrasound 01/15/18 00:00 IMPRESSION: TI-RADS category 4: Moderately suspicious nodule in the right lobe of the thyroid. Per the 2017 ACR guidelines, a follow up exam is recommended at 1, 2, 3, and [address] 01/15/18 07:46 IMPRESSION: 1. No evidence of acute cervical spine fracture 2. 1.8 cm nodule in the right lobe of the thyroid. Recommend thyroid ultrasound for further evaluation. 3. Multilevel chronic degenerative changes of the cervical spine. Chest X-Ray 01/15/18 07:46 IMPRESSION: Acute, displaced fracture of the left proximal humerus. No evidence of acute cardiopulmonary process. Femur X-Ray 01/15/18 07:46 IMPRESSION: No evidence of acute injury. Old postsurgical changes as well as old posttraumatic and degenerative changes. Head CT 01/15/18 07:46 IMPRESSION: MILD CHRONIC CHANGES OF ATROPHY AND MICROVASCULAR ISCHEMIA. NO ACUTE PROCESS. EVIDENCE OF ACUTE STROKE: NO. Shoulder X-Ray 01/15/18 07:46 IMPRESSION: Acute, displaced fracture of the left humeral head at the surgical neck. Suggestion of some comminution into the humeral head. Carotid Doppler Study 01/16/18 00:00 IMPRESSION: NO HEMODYNAMICALLY SIGNIFICANT STENOSIS. Assessment & Plan - Diagnosis (1) Syncope Qualifiers: Syncope type: unspecified Qualified Code(s): R55 - Syncope and collapse Is this a current diagnosis for this admission?: Yes (2) Elevated troponin Is this a current diagnosis for this admission?: Yes (3) Elevated brain natriuretic peptide (BNP) level Is this a current diagnosis for this admission?: Yes (4) COPD (chronic obstructive pulmonary disease) Qualifiers: Chronic bronchitis type: unspecified Is this a current diagnosis for this admission?: Yes (5) Elevated AST (SGOT) Is this a current diagnosis for this admission?: Yes (6) Fracture of humeral head, left, closed Qualifiers: Encounter type: initial encounter Qualified Code(s): S42.292A - Other displaced fracture of upper end of left humerus, initial encounter for closed fracture Is this a current diagnosis for this admission?: Yes (7) Hypokalemia Is this a current diagnosis for this admission?: Yes (8) Diabetes mellitus type 2 in obese Is this a current diagnosis for this admission?: Yes (9) Diastolic dysfunction without heart failure Is this a current diagnosis for this admission?: Yes (10) Edema, lower extremity Is this a current diagnosis for this admission?: Yes (11) Thyroid nodule Is this a current diagnosis for this admission?: Yes - Plan Summary Plan Summary: Syncope-today I met her son who was in the house when she had fallen. I had a better conversation with him regarding her fall. She has a history of being legally blind and with the right lower extremity lymphedema and talking to her son-I believe that this was more of a mechanical fall and less of a cardiogenic or neurogenic fall. Her son who is a assistant case manager and tells me that she never lost consciousness after the fall. I ordered carotid duplex which was normal. I ordered an echocardiogram which also did not show any acute changes. Her EF was 65%. But it does show she may have a mild diastolic-likely grade 1. Elevated troponin-likely secondary to demand mismatch and less likely NSTEMI. Her follow-up troponins remained negative. Elevated BNP-echo today showed diastolic dysfunction but with a preserved EF. We may consider starting her on low-dose Lasix such as 20-40 mg daily. I will have to talk to patient tomorrow about this. COPD-stable continue with current treatment. Fracture of the humeral head, left-I had consulted orthopedics regarding this. She was evaluated by orthopedics this evening-conservative management at this time. She has a sling and she will follow-up with outpatient orthopedics after discharge. Hypokalemia-potassium low again today and I repeated it. I am not sure why her potassium keeps getting low. Will repeat lab in the morning again. Thyroid nodule-seen on CT of spine. I had ordered an ultrasound of her thyroid but it is not completed yet. Needs to be followed up. I have spoken to patient about it on admission but she will need follow-up after discharge. Edema of right lower extremity-chronic. Likely lymphedema from previous chronic disease. Ultrasound was negative for DVT.
[2018-01-16] MEDS: SIMVASTATIN 10 MG TABLET PO SCH (22:22)
[2018-01-16] MEDS: INSULIN LISPRO 100 UNIT/ML 3 ML VIAL SUBCUT PRN (22:24)
[2018-01-17] MEDS: IPRATROPIUM/ALBUTEROL 0.5-2.5 MG/3 ML AMPUL NEB SCH ×2 (00:37→08:16)
[2018-01-17] MEDS: KETOROLAC TROMETHAMINE INJ/PF 30 MG/1 ML SDV IV PRN (00:58)
[2018-01-17 04:57] LABS: HEMATOCRIT 38.3 % (36.0-47.0); MEAN CORPUSCULAR HEMOGLOBIN 28.1 pg (27.0-33.4); MEAN CORPUSCULAR HGB CONC 33.9 g/dL (32.0-36.0); MEAN CORPUSCULAR VOLUME 83 fl (80-97); PLATELET COUNT 160 10^3/uL (150-450); RED BLOOD COUNT 4.63 10^6/uL (3.72-5.28); RED CELL DISTRIBUTION WIDTH 17.6 % (11.5-14.0); WHITE BLOOD COUNT 5.6 10^3/uL (4.0-10.5)
[2018-01-17 05:08] LABS: ALANINE AMINOTRANSFERASE 25 U/L (9-52); ALBUMIN 2.4 g/dL (3.5-5.0); ALKALINE PHOSPHATASE 85 U/L (38-126); ANION GAP 7 (5-19); ASPARTATE AMINO TRANSFERASE 23 U/L (14-36); BILIRUBIN,DIRECT 0.4 mg/dL (0.0-0.4); BILIRUBIN,TOTAL 0.5 mg/dL (0.2-1.3); BLOOD UREA NITROGEN 14 mg/dL (7-20); CALCIUM 8.2 mg/dL (8.4-10.2); CARBON DIOXIDE 29 mmol/L (22-30); CHLORIDE 110 mmol/L (98-107); GLUCOSE 151 mg/dL (75-110); SODIUM 145.9 mmol/L (137-145); TOTAL PROTEIN 5.2 g/dL (6.3-8.2)
[2018-01-17] MEDS: GABAPENTIN 300 MG CAPSULE PO SCH (05:16)
[2018-01-17] MEDS: LEVOTHYROXINE SODIUM 0.1 MG TABLET PO SCH (05:17)
[2018-01-17] MEDS: HEPARIN SOD (PORCINE) 5,000 UNIT/ML 1 ML SYRINGE SUBCUT SCH (05:22)
[2018-01-17] MEDS: LEVOTHYROXINE SODIUM 0.025 MG TABLET PO SCH (05:24)
[2018-01-17] MEDS ORDERED: POTASSIUM CHLORIDE 10 MEQ CAPSULE.ER PO ONE (06:00)
[2018-01-17] MEDS: PAROXETINE HCL 20 MG TABLET PO SCH (08:37)
[2018-01-17] MEDS: INSULIN LISPRO 100 UNIT/ML 3 ML VIAL SUBCUT SCH ×2 (08:37→13:00)
[2018-01-17] MEDS: FAMOTIDINE 20 MG TABLET PO SCH (09:25)
[2018-01-17] MEDS: CHOLECALCIFEROL (D3) 1,000 UNIT TABLET PO SCH (09:25)
[2018-01-17] MEDS: INSULIN NPH (ISOPHANE), HUMAN 100 UNIT/ML 3 ML SUBCUT SCH (09:25)
[2018-01-17] MEDS ORDERED: BISACODYL 5 MG TABEC PO ONE (09:59)
[2018-01-17] MEDS ORDERED: POTASSIUM CHLORIDE 20 MEQ/15 ML UDCUP PO ONE ×2 (09:59→10:30)
[2018-01-17] MEDS ORDERED: HYDROCODONE/ACETAMINOPHEN 5-325 MG TABLET PO PRN (09:59)
[2018-01-17] MEDS ORDERED: SENNOSIDES/DOCUSATE 8.6-50 MG 1 EACH TABLET PO ONE (10:01)
[2018-01-17 12:25] VITALS: BP 165/70
--- NOTE | 2018-01-17 14:59 | PDOC DISCHARGE SUMMARY ---
General - Admit/Disc Date/PCP Admission Date/Primary Care Provider: 01/15/18 11:16 Discharge Date: 01/17/18 - Discharge Diagnosis (1) Fracture of humeral head, left, closed Is this a current diagnosis for this admission?: Yes (2) Syncope Is this a current diagnosis for this admission?: Yes (3) Thyroid nodule Is this a current diagnosis for this admission?: Yes (4) Diastolic dysfunction without heart failure Is this a current diagnosis for this admission?: Yes (5) Diabetes mellitus type 2 in obese Is this a current diagnosis for this admission?: Yes (6) Hypothyroidism Is this a current diagnosis for this admission?: Yes (7) Hypokalemia Is this a current diagnosis for this admission?: Yes - Additional Information Resuscitation Status: Full Code Discharge Diet: As Tolerated, Diabetic Discharge Activity: Activity As Tolerated, Supervised Activity, Other Prescriptions: Hydrocodone/Acetaminophen [[place] 5-325 mg Tablet] 1 tab PO Q4HP PRN 5 Days #20 tablet PRN Reason: Potassium Chloride 20 meq PO DAILY 5 Days #5 tab.er.prt Home Medications: Alendronate Sodium [Fosamax 70 mg Tablet] 70 mg PO SAHU 01/15/18 Cholecalciferol (Vitamin D3) [Vitamin D3 5000 unit Capsule] 5,000 unit PO DAILY 01/15/18 Diphenhydramine HCl [Benadryl 25 mg Capsule] 25 mg PO DAILYP PRN 01/15/18 Gabapentin [Neurontin 300 mg Capsule] 300 mg PO Q8 01/15/18 Insulin Aspart [Novolog Insulin (Aspart) 100 unit/mL] 10 units SQ TID 01/15/18 Levothyroxine Sodium [Synthroid] 125 mcg PO Q6AM 01/15/18 NPH, Human Insulin Isophane [Novolin N (NPH) Insulin 100 unit/mL] 40 units SQ BID 01/15/18 Paroxetine HCl [Paxil 20 mg Tablet] 20 mg PO QAM 01/15/18 Simvastatin [Zocor 20 mg Tablet] 20 mg PO QHS 01/15/18 Gabapentin [Neurontin 300 mg Capsule] 300 mg PO Q8 capsule 01/17/18 Hydrocodone/Acetaminophen [[place] 5-325 mg Tablet] 1 tab PO Q4HP PRN 5 Days #20 tablet 01/17/18 Insulin Lispro [Humalog Insulin (Lispro) 100 unit/mL] 10 unit SUBCUT MEALS unit 01/17/18 Potassium Chloride 20 meq PO DAILY 5 Days #5 tab.er.prt 01/17/18 History of Present Illness Patient complains of: Fall. Humerus fracture History of Present Illness: The patient is a 67-year-old female with past medical history of Diabetes on NPH 40 units twice a day Depression Hypothyroidism Tobacco dependence Diabetic neuropathy Hyperlipidemia She presented to the hospital on January 15 after falling at home. She presented to the hospital with left shoulder pain and was found to have a minimally displaced left proximal humerus fracture at the level of the surgical neck. CT of the cervical spine showed no evidence of acute cervical spine fracture or dislocation. Multilevel chronic degenerative changes were seen. A 1.8 cm nodule is seen in the right lobe of the thyroid. CT head was positive for mild chronic changes of atrophy and microvascular ischemia with no acute process and no acute stroke. Chest x-ray showed no acute cardiopulmonary process. Femur x-ray showed no evidence of acute injury. Upon admission there was concern for possible syncope, carotid ultrasound showed no stenosis bilaterally. Echocardiogram revealed a left ventricular ejection fraction of 65% with mild diastolic dysfunction with no significant valvular abnormalities. Dr. Ute Castro evaluated her and recommended that she wear a sling and avoid any type of weightbearing. Physical therapy and range of motion exercises for the wrist and elbow 3 times a day were recommended. The plan is for nonoperative treatment with follow-up in his office. She is stable for discharge today. She is to follow-up with her primary care physician for the thyroid gland nodule seen on CAT scan. The patient is to establish primary care locally she just moved from [place] last week. Hospital Course Hospital Course: As above. Physical Exam Vital Signs: Temp Pulse Resp BP Pulse Ox 98.1 F 90 18 165/70 H 100 01/17/18 11:47 01/17/18 11:47 01/17/18 11:47 01/17/18 11:47 01/17/18 11:47 Intake & Output 01/16/18 01/17/18 01/18/18 06:59 06:59 06:59 Intake Total 1810 2683 855 Output Total 202 Balance 1810 2481 855 Weight 80.8 kg 83.7 kg General appearance: PRESENT: no acute distress Respiratory exam: PRESENT: symmetrical, unlabored Neurological exam: PRESENT: alert, awake Results Laboratory Results: 01/17/18 04:01 01/17/18 04:01 01/16/18 01/17/18 01/17/18 16:08 04:01 04:01 WBC 5.6 RBC 4.63 Hgb 13.0 Hct 38.3 MCV 83 MCH 28.1 MCHC 33.9 RDW 17.6 H Plt Count 160 Sodium 144.4 145.9 H Potassium 3.1 L 3.0 L* Chloride 106 110 H Carbon Dioxide 31 H 29 Anion Gap 7 7 BUN 13 14 Creatinine 0.67 0.70 Est GFR ( Amer) > 60 > 60 Est GFR (Non-Af Amer) > 60 > 60 Glucose 115 H 151 H Calcium 8.5 8.2 L Phosphorus Magnesium Total Bilirubin 0.5 AST 23 ALT 25 Alkaline Phosphatase 85 Total Protein 5.2 L Albumin 2.4 L 01/17/18 01/17/18 04:01 04:01 WBC RBC Hgb Hct MCV MCH MCHC RDW Plt Count Sodium Potassium Chloride Carbon Dioxide Anion Gap BUN Creatinine Est GFR ( Amer) Est GFR (Non-Af Amer) Glucose Calcium Phosphorus 3.6 Magnesium 1.8 Total Bilirubin AST ALT Alkaline Phosphatase Total Protein Albumin 01/15/18 01/15/18 01/16/18 12:05 16:00 05:56 Troponin I < 0.012 < 0.012 NT-Pro-B Natriuret Pep 1150 H Impressions: Chest/Abdomen CTA 01/15/18 00:00 IMPRESSION: NORMAL CTA OF THE CHEST. NO PULMONARY EMBOLI. Thyroid Ultrasound 01/15/18 00:00 IMPRESSION: TI-RADS category 4: Moderately suspicious nodule in the right lobe of the thyroid. Per the 2017 ACR guidelines, a follow up exam is recommended at 1, 2, 3, and [address] 01/15/18 07:46 IMPRESSION: 1. No evidence of acute cervical spine fracture 2. 1.8 cm nodule in the right lobe of the thyroid. Recommend thyroid ultrasound for further evaluation. 3. Multilevel chronic degenerative changes of the cervical spine. Chest X-Ray 01/15/18 07:46 IMPRESSION: Acute, displaced fracture of the left proximal humerus. No evidence of acute cardiopulmonary process. Femur X-Ray 01/15/18 07:46 IMPRESSION: No evidence of acute injury. Old postsurgical changes as well as old posttraumatic and degenerative changes. Head CT 01/15/18 07:46 IMPRESSION: MILD CHRONIC CHANGES OF ATROPHY AND MICROVASCULAR ISCHEMIA. NO ACUTE PROCESS. EVIDENCE OF ACUTE STROKE: NO. Shoulder X-Ray 01/15/18 07:46 IMPRESSION: Acute, displaced fracture of the left humeral head at the surgical neck. Suggestion of some comminution into the humeral head. Carotid Doppler Study 01/16/18 00:00 IMPRESSION: NO HEMODYNAMICALLY SIGNIFICANT STENOSIS. Qualifiers - * PATIENT BEING DISCHARGED WITH ANY OF THE FOLLOWING DIAGNOSIS: No Plan Time Spent: Greater than 30 Minutes
== END 2018-01-17 14:07 | disposition home health service (06) | DRG 641 ==
LOC: ER 06:45 → EH 11:16 → 3S 13:50
PROVIDERS: ADMIT Internal Medicine; ATTEND Internal Medicine
DX: E87.6 Hypokalemia (principal); S42.212A Unspecified displaced fracture of surgical neck of left humerus, initial encounter for closed fracture; R55 Syncope and collapse; W18.39XA Other fall on same level, initial encounter; Y92.002 Bathroom of unspecified non-institutional (private) residence as the place of occurrence of the external cause; R74.8 Abnormal levels of other serum enzymes; J44.9 Chronic obstructive pulmonary disease, unspecified; F17.210 Nicotine dependence, cigarettes, uncomplicated; E11.9 Type 2 diabetes mellitus without complications; I89.0 Lymphedema, not elsewhere classified; H54.8 Legal blindness, as defined in USA; R74.0 Nonspecific elevation of levels of transaminase and lactic acid dehydrogenase [LDH]; E04.1 Nontoxic single thyroid nodule; E03.9 Hypothyroidism, unspecified; Z79.4 Long term (current) use of insulin; F32.9 Major depressive disorder, single episode, unspecified; Z85.89 Personal history of malignant neoplasm of other organs and systems; Z92.21 Personal history of antineoplastic chemotherapy; Z88.6 Allergy status to analgesic agent; E78.5 Hyperlipidemia, unspecified; E86.0 Dehydration
CPT/HCPCS: 36415; 51701; 70450; 71045; 71275; 72125; 76536; 80048; 80053; 80061; 81001; 82140; 82550; 82553; 82962; 83036; 83735; 83880; 84100; 84439; 84443; 84481; 84484; 85025; 85027; 85610; 85730; 86140; 93005; 93010; 93306; 93880; 93971; 94640; 96365; 96375; 99285; G8978-GP; G8979-GP; J0360; J1644; J1815; J1885; J3010; J3480; J7030; J7620

== ENCOUNTER → 2018-04-06 | Outpatient (CLI) | payer MEDICARE, BC ==
[2018-04-06 17:49] LABS: ANION GAP 10 (5-19); BLOOD UREA NITROGEN 35 mg/dL (7-20); CALCIUM 9.1 mg/dL (8.4-10.2); CARBON DIOXIDE 25 mmol/L (22-30); CHLORIDE 104 mmol/L (98-107); GLUCOSE 207 mg/dL (75-110); POTASSIUM 4.1 mmol/L (3.6-5.0); SODIUM 138.7 mmol/L (137-145)
== END ==
LOC: OD 16:22
PROVIDERS: ATTEND Internal Medicine
DX: E03.9 Hypothyroidism, unspecified (principal); N19 Unspecified kidney failure
CPT/HCPCS: 36415; 80048; 84443

== ENCOUNTER 2020-06-12 12:49 | Emergency (ER) | payer MEDICARE, BC ==
[2020-06-12] MEDS ORDERED: ACETAMINOPHEN 325 MG TABLET PO ONE (13:39)
--- NOTE | 2020-06-12 13:45 | ER Document Report ---
ED General - General Chief Complaint: Back Pain Stated Complaint: LOWER BACK PAIN NAUSEA Time Seen by Provider: 06/12/20 13:16 Mode of Arrival: Stretcher Information source: Patient, Relative Notes: 69-year-old female with a past medical history significant for dementia, diabetes, hypertension, hypothyroidism, hyperlipidemia, lymphedema was brought to the emergency room by ambulance from home. Patient currently lives with her son. Patient states that the son called an ambulance because she was unable to ambulate. Patient denies refusal of taking medications which was reported to EMS by the patient's son. Patient does not know what medication she is taking. When asked patient why she was refusing to get out of bed patient stated "because of my back pain". There has been no recent trauma or injury to her back. Patient states she does not know what she takes her medications or for her back pain. States that her son takes care of all of her medications for her. Patient is alert and oriented x3. She is able to answer questions appropriately. Her only complaint is her low back pain. She denies any loss of control over her bowels or her bladder. She denies any saddle anesthesia. States pain does not radiate down her legs. TRAVEL OUTSIDE OF THE [place] IN LAST 30 DAYS: No - Related Data Allergies/Adverse Reactions: metformin [From Glucophage] Allergy (Verified 06/12/20 13:04) morphine Allergy (Verified 06/12/20 13:04) Past Medical History - General Information source: Patient, Relative, Emergency Med Personnel - Social History Smoking Status: Former Smoker Chew tobacco use (# tins/day): No Frequency of alcohol use: None Drug Abuse: None Family History: Reviewed & Not Pertinent Patient has homicidal ideation: No - Past Medical History Cardiac Medical History: Reports: Hx Hypercholesterolemia Pulmonary Medical History: Reports: Hx COPD Endocrine Medical History: Reports: Hx Diabetes Mellitus Type 1, Hx Diabetes Mellitus Type 2, Hx Hypothyroidism Renal/ Medical History: Denies: Hx Peritoneal Dialysis Malignancy Medical History: Reports: Hx Skin Cancer Musculoskeletal Medical History: Reports Hx Arthritis Psychiatric Medical History: Reports: Hx Depression Past Surgical History: Reports: Hx Cholecystectomy, Hx Hysterectomy, Hx Orthoped ic Surgery Review of Systems - Review of Systems Constitutional: Weakness EENT: No symptoms reported Cardiovascular: No symptoms reported Respiratory: No symptoms reported Genitourinary: No symptoms reported Musculoskeletal: Back pain Skin: No symptoms reported Neurological/Psychological: No symptoms reported -: Yes All other systems reviewed and negative Physical Exam - Vital signs Vitals: Temp 97.7 F 06/12/20 12:49 - General General appearance: Appears well, Alert In distress: Mild - Respiratory Respiratory status: No respiratory distress Chest status: Nontender Breath sounds: Normal Chest palpation: Normal - Cardiovascular Rhythm: Regular Heart sounds: Normal auscultation Murmur: No - Abdominal Inspection: Normal Distension: No distension Bowel sounds: Normal Tenderness: Nontender Organomegaly: No organomegaly - Back Back: Normal, Tender, Vertebra tenderness - Tenderness on palpation from L4-S1. There is no tenderness over the bilateral sciatic notches.. No: Deformity/step- off, CVA tenderness - Neurological Neuro grossly intact: Yes Cognition: Normal Orientation: AAOx4 Alyson Coma Scale Eye Opening: Spontaneous Alyson Coma Scale Verbal: Oriented Alyson Coma Scale Motor: Obeys Commands Chapin Coma Scale Total: 15 Speech: Normal Cranial nerves: Normal Cerebellar coordination: Normal Course - Re-evaluation Re-evalutation: 06/12/20 13:39 I did speak with patient's son Mahin Hilario after receiving consent from the patient that I could call and talk to him. According to the son she moved in with them 1 week ago from [place]. Son states that he drove up to [place] to pick her up and drove her back in their vehicle. Patient states that back in March she had called 911 telling him that she saw her son in the living room with a gun. Son states that he was here in [place] at the time. States that 911 called the police and the patient was taken to the emergency room and was diagnosed with acute kidney failure eventually lined up in a rehab facility for 50 days for inability to walk. Also states patient has a long history of back pain and frequently will request narcotic pain medication. Patient states that he moved her here as her insurance days had in [place] and they were going to have to pay [id number] to continue to have her in the rehab facility in [place]. Son also states that she was diagnosed with dementia while in the hospital in [place]. States initially she was scheduled to go to a mental health facility but due to her kidney failure and inability to walk she was discharged to a rehab facility instead. Son states that she was scheduled to see a new primary care physician today but for the past 2 days the patient has been refusing to get out of bed. States she has at times refused her medications however he was able to give her her normal medications today. Son also states that she is nonmobile at home they do have home health coming in who did bathe her and attempted to walk her 2 days ago without success. He states that he called EMS today with concerns for her inability to ambulate and refusal to take medications. 06/12/20 14:48 Patient with a hemoglobin 8.5 and hematocrit of 25.6. Patient does states she has had problems with anemia in the past. She denies any recent bleeding. No blood in her stools. No hematuria. Not currently on any blood thinners. Discussed initial lab findings with a BUN of 42 and a creatinine of 3.07. Discussed with patient need for possible admission pending her urinalysis. Patient is agreeable to be admitted. Patient continues to complain of worsening chronic back pain. Patient did receive Tylenol which she states did not help with her pain. Reviewed [facility] records patient was getting tramadol and gabapentin while she was hospitalized in [place]. We will give p.o. tramadol while lab results and possible admission are pending. 06/12/20 15:59 Spoke with patient son Mahin Hilario. Was able to obtain phone number for current home health. Will attempt to place call to get old lab results. 06/12/20 16:25 Did speak with Georgiana from patient's home health. Patient's recent labs from April 03 show a BUN of 63, creatinine 3.6, hemoglobin of 9.7 with a hematocrit of 30.5. In comparison to her lab values from today Her acute kidney injury is chronic in nature. Anemia is stable. Still awaiting case management to evaluate situation. Did speak with Dr. Chong he is aware patient will not be admitted for her acute kidney injury. 06/12/20 16:36 Spoke with Nayan from case management. Patient will not meet criteria for admission. She will speak with both the home health nurse as well as the son for her further management of her chronic health conditions. 06/12/20 17:02 Nayan with case management has spoken with the family. They are comfortable having the patient be discharged home with ongoing outpatient follow-up with her primary care physician. Case management will continue to follow the case with the family. Patient will be discharged home via [facility]. All test results were reviewed with the son. Patient has currently pain-free. Patient is agreeable with discharge home and outpatient follow-up. Patient and family were given strict return to the emergency room guidelines. Return for any new or worsening symptoms. All questions were answered. Patient and family verbalized understanding and agrees with plan of care. 06/12/20 19:42 - Vital Signs Vital signs: Temp Pulse Resp BP Pulse Ox 99.1 F 110 H 20 181/73 H 99 06/12/20 17:50 06/12/20 17:50 06/12/20 17:50 06/12/20 17:50 06/12/20 17:50 - Laboratory Result Diagrams: 06/12/20 13:26 06/12/20 13:26 Laboratory results interpreted by me: 06/12/20 06/12/20 06/12/20 13:26 13:26 14:38 RBC 2.90 L Hgb 8.5 L Hct 25.6 L RDW 15.4 H Seg Neuts % (Manual) 87 H Lymphocytes % (Manual) 8 L Abs Neuts (Manual) 8.6 H BUN 42 H Creatinine 3.07 H Est GFR ( Amer) 18 L Est GFR (MDRD) Non-Af 15 L Glucose 252 H Calcium 8.3 L Direct Bilirubin 0.5 H Alkaline Phosphatase 129 H Albumin 2.9 L Urine Protein >=500 H Urine Glucose (UA) >=500 H Urine Ketones TRACE H Urine Blood LARGE H - Consults Dr. Chong Time consulted: 15:40 Reason for consultation: 06/12/20 15:[address] Chong to discuss admission for acute kidney injury, anemia. Would like old labs from previous facility for comparison of anemia and acute kidney injury. Discharge - Discharge Clinical Impression: Generalized weakness Chronic back pain Qualifiers: Back pain location: low back pain Back pain laterality: midline Sciatica presence: without sciatica Qualified Code(s): M54.5 - Low back pain Anemia Qualifiers: Anemia type: unspecified type Qualified Code(s): D64.9 - Anemia, unspecified Condition: Stable Disposition: HOME, SELF-CARE Instructions: Low Back Pain ([facility]) Additional Instructions: Outpatient follow-up with primary care physician as scheduled. Continue with Tylenol and regular medications. Return to emergency room for any new or w orsening symptoms.
[2020-06-12 14:03] LABS: HEMATOCRIT 25.6 % (36.0-47.0); HEMOGLOBIN 8.5 g/dL (12.0-15.5); MEAN CORPUSCULAR HEMOGLOBIN 29.3 pg (27.0-33.4); MEAN CORPUSCULAR HGB CONC 33.2 g/dL (32.0-36.0); MEAN CORPUSCULAR VOLUME 88 fl (80-97); PLATELET COUNT 242 10^3/uL (150-450); RED CELL DISTRIBUTION WIDTH 15.4 % (11.5-14.0); WHITE BLOOD COUNT 9.9 10^3/uL (4.0-10.5)
[2020-06-12 14:13] LABS: ALBUMIN 2.9 g/dL (3.5-5.0); ALKALINE PHOSPHATASE 129 U/L (38-126); ANION GAP 10 (5-19); ASPARTATE AMINO TRANSFERASE 23 U/L (14-36); BILIRUBIN,DIRECT 0.5 mg/dL (0.0-0.4); BLOOD UREA NITROGEN 42 mg/dL (7-20); CALCIUM 8.3 mg/dL (8.4-10.2); CARBON DIOXIDE 22 mmol/L (22-30); CHLORIDE 107 mmol/L (98-107); GLUCOSE 252 mg/dL (75-110); POTASSIUM 4.2 mmol/L (3.6-5.0); TOTAL PROTEIN 6.6 g/dL (6.3-8.2)
[2020-06-12 14:24] LABS: ABSOLUTE LYMPHOCYTES# (MANUAL) 0.8 10^3/uL (0.5-4.7); ABSOLUTE MONOCYTES # (MANUAL) 0.4 10^3/uL (0.1-1.4); BASOPHILS % (MANUAL) 1 % (0-2); EOSINOPHILS % (MANUAL) 0 % (0-6); LYMPHOCYTES % (MANUAL) 8 % (13-45); MONOCYTES % (MANUAL) 4 % (3-13); PLATELET COMMENT ADEQUATE; RBC MORPHOLOGY COMMENT NORMO-CYTIC/CHROMIC; SEGMENTED NEUTROPHILS % (MAN) 87 % (42-78); TOTAL CELLS COUNTED 100
[2020-06-12] MEDS ORDERED: TRAMADOL HCL 50 MG TABLET PO ONE (14:49)
[2020-06-12] MEDS ORDERED: RINGERS SOLUTION,LACTATED 1,000 ML IV ONE (14:57)
[2020-06-12 15:04] LABS: APPEARANCE,URINE CLOUDY; BILIRUBIN,URINE NEGATIVE (NEGATIVE); GLUCOSE, URINE >=500 mg/dL (NEGATIVE); KETONES,URINE TRACE mg/dL (NEGATIVE); LEUKOCYTE ESTERASE,URINE NEGATIVE (NEGATIVE); NITRITE,URINE NEGATIVE (NEGATIVE); PROTEIN,URINE >=500 mg/dL (NEGATIVE); URINE SPECIFIC GRAVITY 1.026; UROBILINOGEN,URINE NEGATIVE mg/dL (<2.0)
[2020-06-12 15:05] LABS: COLOR,URINE YELLOW
[2020-06-12 17:53] VITALS: BP 181/73
== END 2020-06-12 18:00 | disposition home or self-care (01) ==
LOC: ER 12:49
DX: M54.5 Low back pain (principal); G89.29 Other chronic pain; D64.9 Anemia, unspecified; R53.1 Weakness; E11.9 Type 2 diabetes mellitus without complications; I10 Essential (primary) hypertension; J44.9 Chronic obstructive pulmonary disease, unspecified; N17.9 Acute kidney failure, unspecified; Z87.891 Personal history of nicotine dependence; Z88.8 Allergy status to other drugs, medicaments and biological substances; Z88.6 Allergy status to analgesic agent; Z88.5 Allergy status to narcotic agent
CPT/HCPCS: 99284; 96360; 96361; 36415; 87086; 85025; 87088; 80053; 81001; 87186; A9270 ×2; J7120